=== PATIENT | female | born 1955 | race Caucasian/White ===

== ENCOUNTER 2017-02-04 11:29 | Day surgery (SDC) | payer OTHER ==
[2017-02-04] MEDS ORDERED: MIDAZOLAM 2 MG/2 ML VIAL IVP ONE (11:36)
[2017-02-04] MEDS ORDERED: fentaNYL 100 MCG/2 ML INJ IVP ONE (11:36)
[2017-02-04] MEDS ORDERED: BENZOCAINE UNIT DOSE SPRAY HURRICAINE MM ONE (11:36)
[2017-02-04] MEDS ORDERED: NS 500 ML IV ONE (11:36)
[2017-02-04] MEDS ORDERED: PROPOFOL 200 MG/20 ML VIAL IVP ONE (11:36)
--- NOTE | 2017-02-04 11:41 | CPEKG ---
Heart Rate: 80 RR Interval: 750 P-R Interval: 140 QRSD Interval: 74 QT Interval: 356 QTC Interval: 411 P [place]: 67 QRS [place]: 51 T Wave [place]: 33 EKG Severity - ABNORMAL ECG - EKG Impression: SINUS RHYTHM EKG Impression: CONSIDER ANTEROSEPTAL INFARCT Electronically Signed By: Kashmir Stephen 05-Feb-2017 13:02:53
== END 2017-02-04 12:00 | disposition home or self-care (01) ==
LOC: FCATH 11:29
PROVIDERS: ATTEND Internal Medicine Cardiovascular Disease
DX: Z53.29 Procedure and treatment not carried out because of patient's decision for other reasons (principal)

== ENCOUNTER → 2017-10-14 | Outpatient (CLI) | payer OTHER | LOC: BRMIMAGING 14:01 | PROVIDERS: ATTEND Family Medicine | DX: Z12.31 Encounter for screening mammogram for malignant neoplasm of breast (principal) | CPT/HCPCS: G0202 ==

== ENCOUNTER → 2018-04-21 | Outpatient (CLI) | payer OTHER | LOC: FIMAGING 12:20 | PROVIDERS: ATTEND Family Medicine | DX: M24.851 Other specific joint derangements of right hip, not elsewhere classified (principal); M24.852 Other specific joint derangements of left hip, not elsewhere classified ==

== ENCOUNTER 2018-06-21 15:08 | Day surgery (SDC) | payer MEDICAID, OTHER ==
[2018-06-21] MEDS ORDERED: BENZOCAINE UNIT DOSE SPRAY HURRICAINE MM ONE (15:11)
[2018-06-21] MEDS ORDERED: NS 500 ML IV ONE (15:11)
[2018-06-21] MEDS ORDERED: ATROPINE SULFATE 1 MG/10 ML SYR IVP ONE (15:11)
[2018-06-21] MEDS ORDERED: fentaNYL 100 MCG/2 ML INJ IVP ONE (15:11)
[2018-06-21] MEDS ORDERED: MIDAZOLAM 2 MG/2 ML VIAL IVP ONE (15:11)
--- NOTE | 2018-06-23 13:02 | CPEKG ---
Test Reason : OPEN Blood Pressure : / mmHG Vent. Rate : 080 BPM Atrial Rate : 079 BPM P-R Int : 144 ms QRS Dur : 084 ms QT Int : 383 ms P-R-T Axes : 070 060 -37 degrees QTc Int : 442 ms Sinus rhythm Anteroseptal infarct, old Minimal ST depression, anterolateral leads Unchanged in comparison to prior Confirmed by Kashmir Stephen ([id number]) on 06/23/2018 1:01:44 PM Referred By: Confirmed By:Kashmir Stephen
== END 2018-06-21 15:50 | disposition home or self-care (01) ==
LOC: FCATH 15:08
PROVIDERS: ATTEND Internal Medicine Cardiovascular Disease
DX: Z53.8 Procedure and treatment not carried out for other reasons (principal)

== ENCOUNTER → 2018-09-21 | Outpatient (CLI) | payer OTHER ==
[~2018-09-21] MED LIST: IOPAMIDOL (ISOVUE 370) 100 ML BTL IV ONE
== END ==
LOC: FIMAGING 11:49
PROVIDERS: ATTEND Internal Medicine Cardiovascular Disease
DX: Z13.6 Encounter for screening for cardiovascular disorders (principal); I48.91 Unspecified atrial fibrillation; I70.0 Atherosclerosis of aorta; I25.84 Coronary atherosclerosis due to calcified coronary lesion
CPT/HCPCS: Q9967

== ENCOUNTER 2018-09-27 11:09 | Observation (INO) | payer OTHER, MEDICARE ==
[2018-09-27] MEDS ORDERED: NS 1,000 ML IV ONE (11:14)
--- NOTE | 2018-09-27 11:41 | PDGENHP ---
History & Physical Chief Complaint: AFIB, symptomatic Relevant Physical Exam: s1s2, cta ao3 Cardiorespiratory Assessment: for CB PVI for symptomatic AFIB
[2018-09-27 11:49] LABS: PLATELET COUNT 185 10^3/uL (150-400)
[2018-09-27] MEDS ORDERED: HEPARIN/DEXTROSE 25,000 UNIT/500 ML BAG ONE (11:56)
[2018-09-27] MEDS ORDERED: HEPARIN 10,000 UNIT/10 ML MDV (1,000 UNIT/ML) ONE (11:56)
[2018-09-27] MEDS ORDERED: BUPIVACAINE 0.75% 10 ML SDV ONE (11:56)
[2018-09-27] MEDS ORDERED: LIDOCAINE 1% 300 MG/30 ML SDV ONE (11:56)
[2018-09-27 11:57] LABS: INR 0.95 (0.83-1.16); PROTIME(PATIENT) 12.9 SEC (12.0-15.0)
[2018-09-27] MEDS ORDERED: IOPAMIDOL (ISOVUE-300) 100 ML BTL ONE (11:57)
[2018-09-27] MEDS ORDERED: MIDAZOLAM 2 MG/2 ML VIAL IVP ONE (12:00)
--- NOTE | 2018-09-27 12:00 | POSTANESTH ---
Post Anesthetic Evaluation Cardiovascular Status: Normal, Stable Respiratory Status: Normal, Stable Level of Consciousness/Mental Status: Can Participate in Eval, Alert and Oriented Pain Control: Adequate, Prn Tx Ordered Nausea/Vomiting Control: Adequate, Prn Tx Ordered Complications Possibly Related to Anesthesia: None Noted
--- NOTE | 2018-09-27 12:00 | PDANEPAE ---
ANE History of Present Illness EP study/ a fib ablation ANE Past Medical History - Cardiovascular History Hx Hypertension: No Hx Arrhythmias: Yes Hx Chest Pain: No Hx Coronary Artery / Peripheral Vascular Disease: No Hx CHF / Valvular Disease: No Hx Palpitations: No Cardiovascular History Comment: 3 episodes of A Fib - Pulmonary History Hx COPD: No Hx Asthma/Reactive Airway Disease: No Hx Recent Upper Respiratory Infection: No Hx Oxygen in Use at Home: No Hx Sleep Apnea: No - Neurologic History Hx Cerebrovascular Accident: No Hx Seizures: No Hx Dementia: No - Endocrine History Hx Diabetes: No - Renal History Hx Renal Disorders: No - Liver History Hx Hepatic Disorders: No - Neurological & Psychiatric Hx Hx Neurological and Psychiatric Disorders: No - Cancer History Hx Cancer: No - Congenital Disorder History Hx Congenital Disorders: No - GI History Hx Gastrointestinal Disorders: No - Chronic Pain History Chronic Pain: Yes - Surgical History Prior Surgeries: appendectomy. cholecystectomy ANE Review of Systems Review of systems is: negative Review of Systems: - Exercise capacity Exercise capacity: >=4 METS ANE Patient History - Allergies Allergies/Adverse Reactions: codeine Allergy (Verified 08/03/14 12:03) - Home Medications Home Medications: Rosuvastatin Calcium [Crestor 40mg (*)] 40 mg PO DAILY 09/20/18 [Last Taken 12/13 20:00] Eliquis 5 mg PO BID 09/27/18 [Last Taken 09/24/18 20:00] Omeprazole 20 mg PO DAILY 09/27/18 [Last Taken Unknown] - Smoking Hx Smoking Status: Never smoked - Family Anes Hx Family Hx Anesthesia Complications: no ANE Labs/Vital Signs - Labs Result Diagrams: 09/27/18 11:30 09/27/18 11:30 - Vital Signs Height: 165 cm Weight: 65.8 kg ANE Physical Exam - Airway Neck exam: FROM Mallampati Score: Class 1 Mouth exam: normal dental/mouth exam - Pulmonary Pulmonary: no respiratory distress - Cardiovascular Cardiovascular: regular rate and rhythym - ASA Status ASA Status: II ANE Anesthesia Plan Anesthesia Plan: general endotracheal anesthesia
[2018-09-27] MEDS ORDERED: PROPOFOL 200 MG/20 ML VIAL ONE ×2 (12:02→12:56)
[2018-09-27] MEDS ORDERED: fentaNYL 100 MCG/2 ML INJ ONE ×2 (12:02→13:27)
[2018-09-27] MEDS ORDERED: MIDAZOLAM 2 MG/2 ML VIAL ONE (12:02)
[2018-09-27] MEDS ORDERED: ONDANSETRON 4 MG/2 ML VIAL ONE (12:56)
[2018-09-27] MEDS ORDERED: DEXAMETHASONE 4 MG/ML VIAL ONE (12:56)
[2018-09-27] MEDS ORDERED: ROCURONIUM 50 MG/5 ML VIAL ONE (12:56)
[2018-09-27] MEDS ORDERED: PROTAMINE SULFATE 50 MG/5 ML VIAL IVP ONE (13:55)
[2018-09-27] MEDS ORDERED: SUGAMMADEX SODIUM 200 MG/2 ML VIAL IVP ONE (14:02)
--- NOTE | 2018-09-27 14:11 | EPPROC ---
Electrophysiology Procedure Note: ELECTROPHYSIOLOGIC STUDY AND BALLOON-CATHETER MEDIATED CRYOABLATION FOR PAROXYSMAL ATRIAL FIBRILLATION Procedures performed: 00727-27 EP evaluation with RA/RV/LA pace/record, with arrhythmia induction 71267-52 EP evaluation with RA/RV pace record, insert/reposition catheter, with arrhythmia induction [id number] Atrial fibrillation ablation Intracardiac echocardiogram Transseptal puncture Fluoroscopy INDICATION: Paroxysmal atrial fibrillation PROCEDURE: The patient arrived in the Electrophysiology Laboratory in the fasting state. The right groin, left groin and right infraclavicular area were prepped and draped in the usual sterile fashion. Anesthesiologist administered general anesthesia Dr. Maurisio Romero . All catheters were placed percutaneously using the Seldinger technique and advanced into position under fluoroscopic guidance. One #7 [place]uvian deflectable octapolar electrode catheter was placed in the His-bundle position via the left femoral vein (2mm spacing, IVC electrode for unipolar recordings). This catheter was placed in the coronary sinus after transseptal puncture and later placed in the SVC-R subclavian vein junction to pace the right phrenic nerve during right pulmonary vein ablation. One #8 [place]uv[place] AcuNaV ultrasound catheter was placed in the left femoral vein and advanced into the right atrium. One #4 [place] sheath was inserted into the left femoral artery via percutaneous technique and used for continuous arterial blood pressure monitoring and intermittent ACT determination. Programmed stimulation was performed from the right atrium, left atrium (CS) and right ventricle. Intracardiac echo evaluation of the left atrium and pulmonary veins was performed. Baseline ACT was drawn and heparin bolus was administered and heparin drip was started prior to transseptal puncture. ACT was checked every 15 minutes and maintained in the range of 350-400 seconds. One 14Fr short sheath was placed in the right femoral vein. One 8Fr SL1 sheath was advanced into the right atrium via the 14Fr short sheath. Transseptal puncture was performed under intracardiac ultrasound, fluoroscopic and hemodynamic guidance placing the sheath into the left atrium. [place] RF needle ( C0 curve) was used, RF did not need to be applied. The mean left atrial pressure was 10 mmHg. Pulmonary vein angiogram was done using SL1 sheath. CT angiography of pulmonary veins was done previously. There were distinct LSPV, LIPV, RSPV and RIPV. The SL1 sheath was exchanged for a [employer] Internationaltronic Flexcath sheath using an Amplatz stiff guide wire. A 28 mm Cryoballoon catheter with a 20 mm Achieve catheter was placed via the sheath into the left atrium. Intracardiac ultrasound and PV angiograms were used to assist in placing the mapping catheter at the antrum of the pulmonary veins. All pulmonary veins were isolated successfully using cryoballoon ablation with good [id number] of isolation. Coumadin ridge/Ligament of [place] region was ablated. Pre and post pulmonary vein recordings were measured on the spiral Achieve catheter to ensure complete pulmonary vein isolation. During the right- sided ablation, phrenic nerve pacing was performed to assess the phrenic nerve strength (manually and with ICE visualization of liver movement during phrenic capture) and the phrenic nerve was intact throughout the right-sided ablation and at the end of the procedure. An esophageal temperature probe (12 electrode, Circa) was placed by the anesthesiologist at the beginning of the procedure. Esophageal temperature was monitored continuously and cryoablation was interrupted if esophageal temperature was <15 C. Cryoapplications 5 total cryoablation time 875 s. ICE imaging post ablation was consistent with pre ablation imaging with no changes noted, moreover there was no left atrial/left ventricular thrombus and no pericardial effusion. The catheters were withdrawn. Protamine was given. Venous vascular access sheaths were removed in the EP lab after placing subcutaneous pursestring suture. Arterial sheath was left in place. The patient was recovered from anesthesia. There were no complications. The patient was arousable and moving all four extremities at the end of the procedure. CONCLUSIONS: 1. Paroxysmal atrial fibrillation. 2. Successful pulmonary vein isolation procedure (left and right pulmonary vein antrum) using cryoballoon ablation. 3. No apparent complications. Patient Problems: Problems Problem Status Onset Atrial fibrillation Acute
--- NOTE | 2018-09-27 16:41 | CPEKG ---
Test Reason : OPEN Blood Pressure : / mmHG Vent. Rate : 070 BPM Atrial Rate : 070 BPM P-R Int : 146 ms QRS Dur : 083 ms QT Int : 379 ms P-R-T Axes : 051 039 002 degrees QTc Int : 409 ms Sinus rhythm Low voltage, precordial leads Confirmed by Alfred Croft ([id number]) on 09/27/2018 4:41:45 PM Referred By: Confirmed By:Alfred Croft
--- NOTE | 2018-09-27 16:44 | CPEKG ---
Test Reason : OPEN Blood Pressure : / mmHG Vent. Rate : 074 BPM Atrial Rate : 075 BPM P-R Int : 126 ms QRS Dur : 090 ms QT Int : 387 ms P-R-T Axes : 004 071 052 degrees QTc Int : 430 ms Sinus rhythm Low voltage, extremity leads Anteroseptal infarct, old Confirmed by Alfred Croft ([id number]) on 09/27/2018 4:44:15 PM Referred By: Confirmed By:Alfred Croft
[2018-09-27] MEDS ORDERED: traMADol 50 MG TAB PO PRN (17:28)
[2018-09-27] MEDS ORDERED: ACETAMINOPHEN 500 MG TAB PO ONE (20:00)
[2018-09-27] MEDS ORDERED: ONDANSETRON DISINTEGRATING 4 MG TAB PO ONE (20:00)
[2018-09-27] MEDS: APIXABAN 5 MG TAB PO SCH (21:05)
[2018-09-28 06:26] LABS: PLATELET COUNT 183 10^3/uL (150-400)
[2018-09-28] MEDS: APIXABAN 5 MG TAB PO SCH (08:37)
[2018-09-28] MEDS ORDERED: ROSUVASTATIN CALCIUM 40 MG TAB PO SCH (09:00)
[2018-09-28] MEDS ORDERED: PANTOPRAZOLE SODIUM 40 MG TAB PO SCH (09:00)
--- NOTE | 2018-09-28 11:10 | ASMTCMCOM ---
CM Note CM Note Notes: CM met with pt to discuss discharge plan. Pt is being discharged home independently. Pts was present. Both report they are Independent and have no CM needs. Date Signed: 09/28/2018 11:09 AM Electronically Signed By:WELLINGTON Powell
[2018-09-28 12:08] VITALS: BP 110/81
--- NOTE | 2018-09-28 12:08 | CPEKG ---
Test Reason : OPEN Blood Pressure : / mmHG Vent. Rate : 080 BPM Atrial Rate : 080 BPM P-R Int : 135 ms QRS Dur : 089 ms QT Int : 371 ms P-R-T Axes : 013 068 030 degrees QTc Int : 428 ms Sinus rhythm Low voltage, precordial leads Anteroseptal infarct, old Confirmed by Alfred Croft ([id number]) on 09/28/2018 12:07:59 PM Referred By: Confirmed By:Alfred Croft
--- NOTE | 2018-09-28 12:31 | ECHO ---
[email or web address] [address] [address] Main: [phone] Fax: Transthoracic Echocardiogram Name: LEVON HERRON MR#: [id number] Study Date: 09/28/2018 Study Time: 08:01 AM Date of : 1955 Age: 62 year(s) Height: 165.1 cm (65 in.) Weight: 65.77 kg (145 lb.) BSA: 1.73 m2 Gender: Female Examination: Echo Indication: F/U post EP study Image Quality: Adequate Contrast: Requested by: Felipe Olson BP: 94 mmHg/67 mmHg Heart Rate: Rhythm: Indication: F/U post EP study Procedure Staff Ice Rink Attendant: Madyson Kahn [facility] Reading Physician: Kashmir Stephen MD Requesting Provider: Conclusions: Normal size left ventricle. No LV hypertrophy. Normal global systolic LV function. EF is 67 %. No regional wall motion abnormality. Normal diastolic LV function. Normal size right ventricle. The left atrium is normal in size. Left to right shunt across the interatrial septum consistent with transseptal puncture. The right atrium is normal in size. There is mild thickening of the mitral valve leaflets. Trivial to mild mitral regurgitation. The aortic valve is tri-leaflet and functions normally. The tricuspid valve is normal in appearance and function. Mild to moderate tricuspid valve regurgitation. The pulmonic valve is normal in appearance and function. Normal size ascending aorta measuring 2.8 cm. Normal size and course of the IVC. Trivial pericardial effusion. Measurements: Chambers Valvular Assessment AV/MV Valvular Assessment TV/PV Normal Normal Normal Name Value Range Name Value Range Name Value Range Ao Ellen (MM): 2.6 cm (2.2 cm-3.7 AV Vmax: 1.38 m/s (1 m/s-1.7 TR Vmax: 3.29 mm/s ( - ) cm) m/s) TR PGmax: 43 mmHg ( - ) IVSd (2D): 0.9 cm (0.6 cm-1.1 AV maxP mmHg ( - ) syst. PAP: 48 mmHg ( - ) cm) LVOT Vmax: 1.02 m/s (0.7 m/s-1.1 PV Vmax: 0.74 m/s (0.6 m/s-0.9 LVDd (2D): 4.3 cm (3.9 cm-5.3 m/s) m/s) cm) ALAN (Vmax): 1.9 cm2 ( - ) Patient: LEVON HERRON Study Date: 09/28/2018 Page 1 of 2 08:01 AM LVDs (2D): 2.5 cm (2.1 cm-4 MV E Vmax: 0.91 m/s ( - ) PV PGmax: 2 mmHg ( - ) cm) MV A Vmax: 0.51 m/s ( - ) LVPWd (2D): 0.8 cm ( - ) MV E/A: 1.78 ( - ) LVOTd 1.8 cm 1.8 cm mm LVEF (BP): 67 % (>=55 %) RVDd(2D): 3.2 cm (1.9 cm-3.8 cmmm) Continued Measurements: Chambers Valvular Assessment AV/MV Valvular Assessment TV/PV Name Value Name Value Name Value LADs: 3.6 cm MV DecTime: 190 m/s CVP (est.): 5 mmHg LADs Lon.4 cm MV E' Septal: 0.08 m/s LA Area: 14.6 cm2 MV E/E' Septal: 11.00 LA Volume: 38 ml MV E/E' Lateral: 9.60 LA Volume Index: 22.0 ml/m2 TAPSE: 2.1 cm RA Area: 13.5 cm2 Additional Vessels Name Value Ao Ascendin.8 cm Findings: Left Ventricle: Normal size left ventricle. No LV hypertrophy. Normal global systolic LV function. EF is 67 %. No regional wall motion abnormality. Normal diastolic LV function. Right Ventricle: Normal size right ventricle. Normal RV function. Left Atrium: The left atrium is normal in size. Left to right shunt across the interatrial septum consistent with transseptal puncture. Right Atrium: The right atrium is normal in size. Mitral Valve: There is mild thickening of the mitral valve leaflets. Trivial to mild mitral regurgitation. No mitral stenosis is present. Aortic Valve: The aortic valve is tri-leaflet and functions normally. There is no aortic valve regurgitation. No aortic valve stenosis is present. Tricuspid Valve: The tricuspid valve is normal in appearance and function. Mild to moderate tricuspid valve regurgitation. Right ventricular systolic pressure measures 48mmHg. The pulmonary artery pressure is moderately increased. Pulmonic Valve: The pulmonic valve is normal in appearance and function. There is no pulmonic regurgitation seen. Aorta: Normal size aortic root measuring 2.6 cm. Normal size ascending aorta measuring 2.8 cm. IVC: No foreign body in inferior vena cava. Normal size and course of the IVC. Pericardium: Trivial pericardial effusion. (No Signature Object) Patient: LEVON HERRON Study Date: 09/28/2018 Page 2 of 2 08:01 AM [id number]
--- NOTE | 2018-09-28 13:34 | ASDISCHSUM ---
Discharge Information Plan Status:Home with No Needs Medically Cleared to Leave: Discharge Date:09/28/2018 12:19 PM CM D/C Disposition:Home, Routine, Self-Care ADT D/C Disposition:Home, Routine, Self-Care Projected Discharge Date:09/28/2018 12:19 PM Transportation at D/C:Family Discharge Delay Reason: Follow-Up Date:09/28/2018 12:19 PM Discharge Slot: Final Diagnosis:A Fib Ablation Placement Information Patient Contact Information Contact Name:FROILAN Relationship: Address:[address] [facility] City:[place] Phone: State/Zip Code:[place] [address] Email: Financial Information Financial Class:Medicare Primary Plan Desc:MEDICARE OUTPATIENT Primary Plan Number:[id number] Secondary Plan Desc:[employer]ARP/MDR SUPPLEMENT Secondary Plan Number:[id number] Assessment Information LACE LACE Length of stay for Answers: 1 day current admission Comorbidities - select Answers: Coronary Artery Disease all that apply Opioid dependence / Chronic pain Other Notes: AFib # of Emergency department Answers: 0 visits in the last 6 months Score: 8 Date Signed: 09/28/2018 01:33 PM Electronically Signed By:WELLINGTON Powell [facility] CM Progress Note CM Note CM Note Notes: CM met with pt to discuss discharge plan. Pt is being discharged home independently. Pts was present. Both report they are Independent and have no CM needs. Date Signed: 09/28/2018 11:09 AM Electronically Signed By:WELLINGTON Powell Case Management Discharge Plan Note Case Management Discharge Discharge Order Complete? Answers: Yes Patient to Obtain Answers: via Family Medications Transportation Arranged Answers: Family/Friends Family Notified Answers: Yes Notes: at bedside Discharge Comments Notes: No CM needs identified. Pt discharged home with family supports. Date Signed: 09/28/2018 11:11 AM Electronically Signed By:WELLINGTON Powell Intervention Information
--- NOTE | 2018-09-28 21:53 | GDS ---
SUPERVISING HUMAN RESOURCES ADMIN: Felipe Olson MD ADMISSION DIAGNOSIS: Paroxysmal atrial fibrillation. DISCHARGE DIAGNOSES: Paroxysmal atrial fibrillation, status post cryoballoon pulmonary vein isolation. PROCEDURES PERFORMED DURING HOSPITALIZATION: 1. Electrocardiogram. 2. Electrophysiology study. 3. Cryoballoon pulmonary vein isolation. 4. Echocardiogram. HOSPITAL COURSE: Patient presented 09/27/2018, for atrial fibrillation ablation in the setting of increasingly symptomatic episodes of paroxysmal atrial fibrillation. She underwent successful pulmonary vein isolation yesterday with Dr. Olson. She has done very well in the postoperative period without any noted complications. Her telemetry overnight demonstrated normal sinus rhythm without recurrence of atrial arrhythmia. She has been up walking around this morning without chest pain, chest pressure, or symptoms suggestive of ischemia. She has been eating well with good appetite this morning. No issues with swallowing, hemoptysis, or other concerning symptoms. CURRENT PHYSICAL EXAMINATION: GENERAL APPEARANCE: No apparent distress. She is alert and oriented x4. CURRENT VITAL SIGNS: Blood pressure 110/81, heart rate 81, SpO2 94% on room air. HEENT: Head is normocephalic. Lips and tongue are pink and moist with no signs of cyanosis. Conjunctivae are pink. NECK: Trachea is midline. 2+ carotid pulses bilaterally. No auscultated bruits. No jugular venous distention. RESPIRATORY: Lungs are clear to auscultation. No rhonchi, rales, or wheezes. No accessory muscle use. No intercostal muscle retraction noted. CARDIAC: Regular rate and rhythm, S1, S2. No S3, S4, gallops, rubs, or murmurs noted. ABDOMEN: Soft, nontender. Bowel sounds normoactive x4. No palpable masses. SKIN: [place], warm, and dry without cyanosis. No peripheral edema. EXTREMITIES: Bilateral purse-string sutures removed this morning without evidence of hematoma, redness, swelling, oozing, or warmth from access sites. Pulses 2+ bilaterally. No edema. LABORATORY STUDIES: Labs drawn today show white blood cell count 5.93, hemoglobin 12.1, hematocrit 36.2. Chemistry panel is normal. Troponin 8.26 this morning. PROCEDURES: ECG this morning demonstrates normal sinus rhythm without significant ST or T-wave abnormalities. Echocardiogram this morning is stable. DISCHARGE DISPOSITION: Patient will be discharged home in stable condition. She is under activity restrictions of lifting no more than 10 pounds for the next 10 days. She will get up and walk around every 45 minutes for 45 days. She will not engage in any submerged bathing during this same time frame. DISCHARGE MEDICATIONS: Please see discharge med reconciliation sheet. Patient has resumed her Eliquis and omeprazole in the postprocedure period. DISCHARGE INSTRUCTIONS: 1. Post atrial fibrillation ablation discharge instructions reviewed in detail with patient including groin precautions and activity restrictions. 2. She will contact our clinic if she experiences any new or concerning symptoms prior to her 1-month followup visit. 3. She will contact our clinic if she plans to scuba dive or travel via unpressurized aircraft for the next 12 months. 4. She will continue Omeprazole for 6 weeks 5. She will continue Eliquis for long-term anticoagulation /[id number]/MODL MTDD
== END 2018-09-28 12:19 | disposition home or self-care (01) ==
LOC: FCATH 11:09 → F2N 14:12
PROVIDERS: ADMIT Internal Medicine Cardiovascular Disease; ATTEND Internal Medicine Cardiovascular Disease
DX: I48.0 Paroxysmal atrial fibrillation (principal)
CPT/HCPCS: 93005; 93306; 93312; 93613; 93656; 93662; C1730; C1731; C1732; C1733; C1759; C1766; C1893; J1100; J1644; J2250; J2405; J2704; J2720; J3010; Q9967

== ENCOUNTER → 2018-10-01 | Outpatient (CLI) | payer OTHER | LOC: FIMAGING 15:23 | PROVIDERS: ATTEND Internal Medicine Cardiovascular Disease | DX: I48.91 Unspecified atrial fibrillation (principal); J90 Pleural effusion, not elsewhere classified ==

== ENCOUNTER 2018-10-02 14:18 | Observation (INO) | payer OTHER, MEDICARE ==
--- NOTE | 2018-10-02 14:50 | EDPHY ---
H & P Stated Complaint: Ablation on Thursday; thinks she's back in afib; feels lightheaded Time Seen by Provider: 10/02/18 14:37 HPI/ROS: CHIEF COMPLAINT: Atrial fibrillation HISTORY OF PRESENT ILLNESS: The patient is a 62-year-old female with a history of atrial fibrillation on Eliquis. On Thursday this week she had a cardiac ablation done with Dr. Olson. Her primary lead enterprise architect is Dr. Dos Santos. Yesterday she felt like her heart was beating fast and is followed up in Dr. Olson is office. He performed an echocardiogram and EKG. These were both unremarkable. He then started her on diltiazem. Today around 11:00 a.m. She noticed palpitations and lightheadedness. No nausea vomiting. No chest pain or shortness of breath. She called cardiology office and spoke with Dr. Stephen who recommended she take an extra dose of diltiazem. Her symptoms did not subside after 2 hr so she called back and they recommended she come here to the ER for cardioversion. She last ate at 10:00 a.m.. Severity: Moderate Modifying factors: None REVIEW OF SYSTEMS: Constitutional: denies: chills, fever, recent illness, recent injury EENTM: denies: blurred vision, double vision, nose congestion Respiratory: denies: cough, shortness of breath Cardiac: Palpitations, lightheadedness Gastrointestinal/Abdominal: denies: abdominal pain, diarrhea, nausea, vomiting, blood streaked stools Genitourinary: denies: dysuria, frequency, hematuria, pain Musculoskeletal: denies: joint pain, muscle pain Skin: denies: lesions, rash, jaundice, bruising Neurological: denies: headache, numbness, paresthesia, tingling, dizziness, weakness Hematologic/Lymphatic: denies: blood clots, easy bleeding, easy bruising Immunologic/allergic: denies: HIV/AIDS, transplant 10 systems reviewed and negative except as noted EXAM: GENERAL: Somewhat anxious, well-nourished and in no acute distress. HEAD: Atraumatic, normocephalic. EYES: Pupils equal round and reactive to light, extraocular movements intact, sclera anicteric, conjunctiva are normal. ENT: TMs normal, nares patent, oropharynx clear without exudates. Moist mucous membranes. NECK: Normal range of motion, supple without lymphadenopathy or JVD. LUNGS: Breath sounds clear to auscultation bilaterally and equal. No wheezes rales or rhonchi. HEART: Tachycardic, irregular ABDOMEN: Soft, nontender, normoactive bowel sounds. No guarding, no rebound. No masses appreciated. BACK: No CVA tenderness, no spinal tenderness, step-offs or deformities EXTREMITIES: Normal range of motion, no pitting or edema. No clubbing or cyanosis. NEUROLOGICAL: Cranial nerves II through XII grossly intact. Normal speech, normal gait. 5/5 strength, normal movement in all extremities, normal sensation , normal reflexes PSYCH: Normal mood, normal affect. SKIN: Warm, dry, normal turgor, no visible rashes or lesions. Source: Patient Exam Limitations: No limitations - Personal History Current Tetanus Diphtheria and Acellular Pertussis (TDAP): Yes Tetanus Vaccine Date: <10 YRS - Medical/Surgical History Hx Asthma: No Hx Chronic Respiratory Disease: No Hx Diabetes: No Hx Cardiac Disease: No Hx Renal Disease: No Hx Cirrhosis: No Hx Alcoholism: No Hx HIV/AIDS: No Hx Splenectomy or Spleen Trauma: No Other PMH: RICHARD, APPY, DJD bilateral hips, CAD, PAF,. MV prolapse. afib - Family History Significant Family History: No pertinent family hx - Social History Smoking Status: Never smoked Alcohol Use: None Drug Use: None Constitutional: Initial Vital Signs Temperature (C) 36.4 C 10/02/18 14:20 Heart Rate 166 H 10/02/18 14:20 Respiratory Rate 18 10/02/18 14:20 Blood Pressure 141/105 H 10/02/18 14:20 O2 Sat (%) 97 10/02/18 14:20 O2 Delivery Mode [Post Nasal Cannula Procedure 4th] O2 Delivery Mode [Post Nasal Cannula Procedure 3rd] O2 Delivery Mode [Post Non-Rebreather Mask Procedure 2nd] O2 Delivery Mode [Post Non-Rebreather Mask Procedure 1st] O2 Delivery Mode [Procedural Non-Rebreather Mask 1st] O2 Delivery Mode [.Immediate Nasal Cannula Pre-Procedure] O2 Delivery Mode Room Air O2 (L/minute) [Post Procedure 2 4th] O2 (L/minute) [Post Procedure 2 3rd] O2 (L/minute) [Post Procedure 15 2nd] O2 (L/minute) [Post Procedure 15 1st] O2 (L/minute) [Procedural 1st] 15 O2 (L/minute) [.Immediate Pre- 2 Procedure] O2 (L/minute) 2 Allergies/Adverse Reactions: codeine Allergy (Mild, Verified 10/02/18 14:29) n/v Home Medications: Medication Instructions Recorded Rosuvastatin Calcium [Crestor 40mg 40 mg PO DAILY@18 09/20/18 (*)] Herbals/Supplements -Info Only 1 ea PO DAILY 09/27/18 Omeprazole 20 mg PO DAILY 09/27/18 Apixaban [Eliquis] 5 mg PO BID 10/02/18 Aspirin EC [Aspirin EC 81 mg (*)] 81 mg PO DAILY@18 10/02/18 Cholecalciferol (Vitamin D3) 5,000 unit PO DAILY 10/02/18 [Vitamin D3] Diltiazem HCl [Diltiazem ER] 180 mg PO DAILY 10/02/18 Medical Decision Making - Diagnostics EKG Interpretation: An EKG obtained and was read and documented in trace view. Please see trace view for full reading and report. Atrial fibrillation, no acute ischemic changes Procedures: Procedure: Procedural sedation. Indication: Cardioversion. A pre-sedation evaluation was completed on the patient just prior to the procedure. Patient is an appropriate candidate for procedural sedation with a normal 3-3-2 rule assessment and a Mallampati airway score of class 2. The risks of the sedation were discussed including but not limited to dysrhythmia, need for airway intervention or general anesthesia, disability, ; and verbal consent obtained. A timeout was observed and patient's identity confirmed. The patient was sedated with propofol 60 mg. The patient was monitored with continuous pulse oximetry, capnography, and helper driver. There were no complications and no significant hypoxemia. I remained at the bedside for the sedation. The total time I spent in the procedural sedation was 16 minutes. Procedure: Electrical cardioversion. The patient was electrically cardioverted for atrial fibrillation. The patient was on a continuous teacher ballet, with airway equipment at the bedside. The patient was on continuous pulse oximetry. The cardioversion was attempted with 120 joules biphasic current. The cardioversion was successful. The patient tolerated the procedure well with no complications. The procedure was performed by myself. ED Course/Re-evaluation: Patient has documented sinus rhythm less than 24 hr ago. She is anticoagulated. We will plan to cardiovert. I offered procainamide verses electrical cardioversion. She told me that Dr. Dos Santos would prefer electrical cardioversion. She has already tried vagal maneuvers. 3:15 p.m. the patient was sedated with propofol cardioverted at 1:20 a.m. Joules. She went to sinus rhythm but is in and out of atrial fibrillation. We gave her 10 mg IV diltiazem. She had taken the extra dose earlier today as well. She remains about 30% atrial fibrillation 70% sinus rhythm. We will observe to see if she needs further medications cardioversion. 3:45 p.m. I spoke with Dr. Stephen. He agrees with the treatment thus far. Unfortunately the patient remains in atrial fibrillation a large portion of the time. She tends to go back and forth on the monitor. She feels much better however in her rate is around 100. Dr. Stephen recommends some anxiety lytic and then admission to the hospitalist service for further evaluation by the cardiology team tomorrow. 4:00 p.m. I spoke with Dr. Fuentes who will admit to the medical service. Differential Diagnosis: Partial list of the Differential diagnosis considered include but were not limited to; atrial fibrillation, anxiety, lightheadedness and although unlikely based on the history and physical exam, I also considered acute coronary disease, PE, infection. I discussed these differential diagnoses and the plan with the patient as well as the usual and expected course. The patient understands that the diagnosis is provisional and that in medicine we are not always correct and that further workup is often warranted. Usual and customary warnings were given. All of the patient's questions were answered. The patient was instructed to return to the emergency department should the symptoms at all worsen or return, otherwise to followup with the physician as we discussed. Critical Care Time: Critical care time spent by me, Dr. Monroe exclusive with this patient was 35 minutes, exclusive of the PA time exclusive of procedures. The organ system that was at risk was cardiologic and I gave medications, treatments, consultation and admission to prevent worsening of the patient's condition - Data Points Laboratory Results: Laboratory Results 10/02/18 14:40 10/02/18 14:40 10/02/18 10/02/18 14:40 14:40 WBC 6.00 10^3/uL 10^3/uL (3.80-9.50) RBC 4.87 10^6/uL 10^6/uL (4.18-5.33) Hgb 14.9 g/dL g/dL (12.6-16.3) Hct 44.3 % % (38.0-47.0) MCV 91.0 fL fL (81.5-99.8) MCH 30.6 pg pg (27.9-34.1) MCHC 33.6 g/dL g/dL (32.4-36.7) RDW 12.2 % % (11.5-15.2) Plt Count 234 10^3/uL 10^3/uL (150-400) MPV 9.0 fL fL (8.7-11.7) Neut % (Auto) 72.0 % % (39.3-74.2) Lymph % (Auto) 15.5 % % (15.0-45.0) Wilcox % (Auto) 10.5 % % (4.5-13.0) Eos % (Auto) 1.2 % % (0.6-7.6) Baso % (Auto) 0.5 % % (0.3-1.7) Nucleat RBC Rel Count 0.0 % % (0.0-0.2) Absolute Neuts (auto) 4.32 10^3/uL 10^3/uL (1.70-6.50) Absolute Lymphs (auto) 0.93 10^3/uL L 10^3/uL (1.00-3.00) Absolute Monos (auto) 0.63 10^3/uL 10^3/uL (0.30-0.80) Absolute Eos (auto) 0.07 10^3/uL 10^3/uL (0.03-0.40) Absolute Basos (auto) 0.03 10^3/uL 10^3/uL (0.02-0.10) Absolute Nucleated RBC 0.00 10^3/uL 10^3/uL (0-0.01) Immature Gran % 0.3 % % (0.0-1.1) Immature Gran # 0.02 10^3/uL 10^3/uL (0.00-0.10) Sodium 141 mEq/L mEq/L (135-145) Potassium 3.9 mEq/L mEq/L (3.5-5.2) Chloride 105 mEq/L mEq/L (97-110) Carbon Dioxide 27 mEq/l mEq/l (22-31) Anion Gap 9 mEq/L mEq/L (6-14) BUN 14 mg/dL mg/dL (7-23) Creatinine 0.8 mg/dL mg/dL (0.6-1.0) Estimated GFR > 60 Glucose 139 mg/dL H mg/dL (70-100) Calcium 9.9 mg/dL mg/dL (8.5-10.4) Medications Given: Discontinued Medications Diltiazem HCl (Cardizem 25 Mg/5 Ml Vial) 10 mg IVP EDNOW ONE Stop: 10/02/18 15:10 Last Admin: 10/02/18 15:10 Dose: 10 mg Diltiazem HCl 125 mg/ Dextrose 125 mls @ 0 mls/hr IV EDNOW ONE; As Directed PRN Reason: Protocol Stop: 10/02/18 16:01 Last Admin: 10/02/18 16:25 Dose: 125 mls Lorazepam (Ativan Injection) 1 mg IVP EDNOW ONE Stop: 10/02/18 15:47 Last Admin: 10/02/18 16:03 Dose: 1 mg Propofol (Diprivan) 60 mg IVP EDNOW ONE Stop: 10/02/18 15:10 Last Admin: 10/02/18 15:11 Dose: 60 mg Departure - Departure Disposition: [facility] Inpatient Acute Clinical Impression: Atrial fibrillation Qualifiers: Atrial fibrillation type: chronic Qualified Code(s): I48.2 - Chronic atrial fibrillation Condition: Fair
--- NOTE | 2018-10-02 14:51 | CPEKG ---
Test Reason : OPEN Blood Pressure : / mmHG Vent. Rate : 125 BPM Atrial Rate : 106 BPM P-R Int : 149 ms QRS Dur : 084 ms QT Int : 297 ms P-R-T Axes : 067 073 036 degrees QTc Int : 429 ms Atrial fibrillation Paired ventricular premature complexes Anteroseptal infarct, old Confirmed by Malik Monroe ([id number]) on 10/02/2018 2:50:38 PM Referred By: Confirmed By:Malik Monroe
[2018-10-02 14:52] LABS: PLATELET COUNT 234 10^3/uL (150-400)
[2018-10-02] MEDS ORDERED: PROPOFOL 200 MG/20 ML VIAL ONE (14:53)
[2018-10-02] MEDS ORDERED: DILTIAZEM 25 MG/5 ML VIAL IVP ONE ×2 (15:06→15:09)
[2018-10-02] MEDS ORDERED: PROPOFOL 200 MG/20 ML VIAL IVP ONE (15:09)
[2018-10-02] MEDS ORDERED: LORazepam 2 MG/ML INJ IVP ONE (15:46)
[2018-10-02] MEDS ORDERED: DILTIAZEM 125 MG in D5W 125 ML IV ONE (16:00)
[2018-10-02] MEDS ORDERED: ONDANSETRON DISINTEGRATING 4 MG TAB PO PRN (18:35)
[2018-10-02] MEDS ORDERED: ACETAMINOPHEN 325 MG TAB PO PRN (18:35)
[2018-10-02] MEDS ORDERED: TEMAZEPAM 15 MG CAP PO PRN (18:35)
[2018-10-02] MEDS ORDERED: ONDANSETRON 4 MG/2 ML VIAL IVP PRN (18:35)
--- NOTE | 2018-10-02 19:55 | GHP ---
DATE OF ADMISSION: 10/02/2018 CHIEF COMPLAINT: Atrial fibrillation. HISTORY OF PRESENT ILLNESS: This is a 62-year-old female who has had atrial fibrillation for several years. She underwent an ablation last week with Dr. Olson. She had been doing well until this mornin g when she realized she was in atrial fibrillation. She had some dizziness but no chest pain. In e emergency department, cardioversion was attempted, which was successful for some time, but she has reverted back to atrial fibrillation. She is denying any chest pain, shortness of breath. REVIEW OF SYSTEMS: A 10-point review of systems was obtained and was otherwise negative. PAST MEDICAL HISTORY: 1. Atrial fibrillation. 2. GERD. 3. Hyperlipidemia. MEDICATIONS: Reviewed. SOCIAL HISTORY: No smoking or alcohol. FAMILY HISTORY: No family history of atrial fibrillation. PHYSICAL EXAMINATION: VITAL SIGNS: Afebrile, blood pressure 123/73, heart rate 122, oxygen saturati on 93% on room air. GENERAL: The patient is well developed, in no apparent distress. HEENT: Nonic teric sclerae. Extraocular movements intact. Moist mucous membranes. NECK: Supple. No thyromegal y. LUNGS: Good effort. Clear to auscultation bilaterally. CARDIOVASCULAR: Tachycardic. Irregula rly irregular. No murmurs, rubs, or gallops. ABDOMEN: Positive bowel sounds. Soft, nontender, non distended. No hepatosplenomegaly. EXTREMITIES: No clubbing, cyanosis, or edema. SKIN: Without ra sh. Dry, intact. NEUROLOGIC: Moving all 4 extremities equally. PSYCH: Normal affect. LABS: CBC is normal. Chemistries normal. EKG shows atrial fibrillation. ASSESSMENT: This is a 62-year-old female with recurrent atrial fibrillation after ablation. PLAN: Patient will be admitted. She will continue a diltiazem drip that was started by the emergenc y department. Cardiology has been consulted and will offer recommendations in the morning. /[id number]/MODL
[2018-10-02] MEDS ORDERED: ASPIRIN EC 81 MG TAB PO ONE (21:00)
[2018-10-02] MEDS ORDERED: ROSUVASTATIN CALCIUM 40 MG TAB ONE (21:00)
[2018-10-02] MEDS: APIXABAN 5 MG TAB PO SCH (21:01)
[2018-10-03 07:44] VITALS: BP 125/76
[2018-10-03] MEDS: APIXABAN 5 MG TAB PO SCH (07:50)
[2018-10-03] MEDS ORDERED: DILTIAZEM CD 180 MG CAP PO SCH (09:00)
[2018-10-03] MEDS ORDERED: PANTOPRAZOLE SODIUM 40 MG TAB PO SCH (09:00)
--- NOTE | 2018-10-03 09:25 | PDCARPN ---
Cardiology Progress Note Chief Complaint: Patient doing well this morning. Sinus rhythm noted Assessment/Plan: Assessment: Patient is a 62 y/o female, well known to [facility] EP (Dr. Pily Olson) status post ablation last week for atrial fibrillation. Yesterday morning, the patient noted a "...fast, irregular heart rate..." while vacuuming. Call to cardiology with initial recommendations over the phone for the patient to increase her dose of diltiazem, and see how heart rates responded. After about two hours, the heart rate was still elevated, and the patient was having more issues with dizziness, so recommendations were for patient to go to ER. Call to ER to recommend against cardioversion (off anticoagulation briefly and fresh ablation), with more therapy directed toward slowing rate as well as reducing anxiety. Patient was cardioverted, unsuccessfully, but did spontaneously convert on the floor last night. At present, the patient is feeling well, and would like to go home. No cardiovascular complaints of chest pains or pressure. Patient feels that her heart rate is back to her baseline. Plan: (1) Would maintain therapy on Eliquis for CVA prophylaxis (2) Would determine the patient's IV dosing of CCB yesterday (from ER to floor ) to determine home dosage of CCB therapy - she was initially on 180 mg of diltiazem (3) Patient should continue therapy on statins for HLP (4) Call to [facility] EP in morning for follow up scheduling Subjective: No cardiovascular complaints Reviewed/Discussed With: hospitalist Objective: Vital Signs (8 Hrs) Temp Pulse Resp BP Pulse Ox 10/03/18 07:50 88 125/76 H 10/03/18 07:42 37.1 C 93 18 125/76 H 95 10/03/18 04:00 36.7 C 81 16 105/53 L 90 L Intake/Output (24 Hrs) 10/02/18 10/03/18 10/04/18 05:59 05:59 05:59 Intake Total 1200 Balance 1200 Intake: Oral (ml) 200 IV Infused (ml) 1000 Other: Weight 66.5 kg Intake Quantity Yes Sufficient Number of Voids Toilet 2 Result Diagrams: 10/02/18 14:40 10/02/18 14:40 Telemetry: normal sinus rhythm - Physical Exam Constitutional: WDWN, healthy appearing, no apparent distress Eyes: PERRL, EOMI Ears, Nose, Mouth, Throat: moist mucous membranes Cardiovascular: regular rate and rhythm, no murmurs, no rubs Peripheral Pulses: 2+: dorsalis-pedis (R), dorsalis-pedis (L) Respiratory: clear to auscultate bilat, no crackles, no wheezes Gastrointestinal: normoactive bowel sounds Skin: no rashes, no edema Musculoskeletal: no muscular tenderness Neurologic: AAOx3, CN II-XII grossly intact Psychiatric: cooperative, interactive, following commands ICD10 Worksheet Patient Problems: Problems Problem Status Onset Atrial fibrillation Acute
--- NOTE | 2018-10-03 10:07 | ASDISCHSUM ---
Discharge Information Plan Status:Home with No Needs Medically Cleared to Leave:10/02/2018 Discharge Date:10/02/2018 CM D/C Disposition:Home, Routine, Self-Care ADT D/C Disposition:Home, Routine, Self-Care Projected Discharge Date:10/02/2018 Transportation at D/C: Discharge Delay Reason: Follow-Up Date:10/02/2018 Discharge Slot: Final Diagnosis: Placement Information Patient Contact Information Contact Name:FROILAN Relationship: Address:[address] [place] [address] City:[place] Phone: [facility]/Zip Code:[place] [address] Email: Financial Information Financial Class:Medicare Primary Plan Desc:MEDICARE OUTPATIENT Primary Plan Number:[id number] Secondary Plan Desc:[employer]/MDR SUPPLEMENT Secondary Plan Number:[id number] Assessment Information Intervention Information
--- NOTE | 2018-10-03 10:08 | ASMTLACE ---
LACE Length of stay for Answers: Less than 1 day current admission Acuity / Level of Answers: No Care: Did the patient have an inpatient admission? Comorbidities - select Answers: Other Notes: atrial fib all that apply # of Emergency department Answers: 1-2 visits in the last 6 months Score: 2 Date Signed: 10/03/2018 10:08 AM Electronically Signed By:Gricelda Ruiz RN
--- NOTE | 2018-10-03 10:10 | ASMTDCNOTE ---
Case Management Discharge Discharge Order Complete? Answers: Yes Patient to Obtain Answers: Independently Medications Transportation Arranged Answers: Family/Friends Family Notified Answers: Yes Discharge Comments Notes: Patient s/p succesful Cardio version. Medically cleared for discharge to home. No needs. Date Signed: 10/03/2018 10:09 AM Electronically Signed By:Gricelda Ruiz RN
--- NOTE | 2018-10-03 10:33 | GDS ---
ALL DIAGNOSES: 1. Atrial fibrillation with rapid ventricular response. 2. Recent ablation by Dr. Olson. HOSPITAL COURSE: This is a 62-year-old female who presented to the ED in atrial fibrillation with RV R. She underwent a cardioversion there, however, reverted to atrial fibrillation. She was thus admi tted on a diltiazem drip. She converted to sinus rhythm overnight. She has been seen by Cardiology, who agrees with a slight increase in her diltiazem from 180 mg daily to 240 mg daily. When I am see ing her, she is not interested in having any discussion regarding her medical care and only said "bye ." She is thus discharged in stable condition. She will follow up with Dr. Olson as planned. /[id number]/MODL
[2018-10-03] MEDS ORDERED: ROSUVASTATIN CALCIUM 40 MG TAB PO SCH (18:00)
[2018-10-03] MEDS ORDERED: ASPIRIN EC 81 MG TAB PO SCH (18:00)
== END 2018-10-03 10:20 | disposition home or self-care (01) ==
LOC: F2W 17:00
PROVIDERS: ADMIT Internal Medicine; ATTEND Student in an Organized Health Care Education/Training Program
PROC: 5A2204Z Restoration of Cardiac Rhythm, Single (ICD-10-PCS; principal; 2018-10-02)
DX: I48.2 Chronic atrial fibrillation (principal); Z79.01 Long term (current) use of anticoagulants; I25.10 Atherosclerotic heart disease of native coronary artery without angina pectoris; M16.0 Bilateral primary osteoarthritis of hip
CPT/HCPCS: 92960; 93005; 96374; 96375; 99291; G0378; J2060; J2704

== ENCOUNTER → 2018-10-08 | Outpatient (CLI) | payer OTHER, MEDICARE | LOC: BHFA 13:00 | PROVIDERS: ATTEND Internal Medicine Cardiovascular Disease | DX: I48.91 Unspecified atrial fibrillation (principal) ==

== ENCOUNTER → 2018-11-02 | Outpatient (CLI) | payer OTHER, MEDICARE | LOC: BRMIMAGING 11:04 | PROVIDERS: ATTEND Family Medicine | DX: Z12.31 Encounter for screening mammogram for malignant neoplasm of breast (principal) ==

== ENCOUNTER → 2019-01-05 | Outpatient (CLI) | payer OTHER, MEDICARE | LOC: EMCIMAGING 07:48 | PROVIDERS: ATTEND Family Medicine | DX: N95.8 Other specified menopausal and perimenopausal disorders (principal); D25.1 Intramural leiomyoma of uterus | CPT/HCPCS: 76700-PN; 76856-PN ==

== ENCOUNTER → 2019-01-11 | Outpatient (CLI) | payer OTHER, MEDICARE | LOC: BHFA 13:00 | PROVIDERS: ATTEND Internal Medicine Cardiovascular Disease | DX: Z01.818 Encounter for other preprocedural examination (principal); I48.0 Paroxysmal atrial fibrillation; I25.10 Atherosclerotic heart disease of native coronary artery without angina pectoris | CPT/HCPCS: 78452; 93017; A9500; J2785 ==

== ENCOUNTER 2019-02-02 05:55 | Inpatient (IN) | payer OTHER, MEDICARE ==
[2019-02-02] MEDS ORDERED: TRANEXAMIC ACID 3,000 MG in NS (SYRINGE) 50 ML IRR ONE (06:00)
[2019-02-02] MEDS ORDERED: ROPIVACAINE 0.2% 80 MG, EPINEPHrine 0.2 MG, KETOROLAC TROMETHAMINE 30 MG in SYRINGE 0 ML IU ONE (06:00)
[2019-02-02] MEDS ORDERED: DEXAMETHASONE 4 MG/ML VIAL IVP ONE (06:03)
[2019-02-02] MEDS ORDERED: ACETAMINOPHEN 325 MG TAB PO ONE (06:03)
[2019-02-02] MEDS ORDERED: FAMOTIDINE 20 MG TAB PO ONE (06:03)
[2019-02-02] MEDS ORDERED: ceFAZolin 2 GM/DEXTROSE 100 ML IV ONE (06:03)
[2019-02-02] MEDS ORDERED: LR 1,000 ML IV ONE (06:04)
[2019-02-02] MEDS ORDERED: ACETAMINOPHEN 325 MG TAB ONE (06:13)
[2019-02-02] MEDS ORDERED: FAMOTIDINE 20 MG TAB ONE (06:13)
[2019-02-02] MEDS ORDERED: DEXAMETHASONE 4 MG/ML VIAL ONE ×3 (06:13→07:48)
--- NOTE | 2019-02-02 06:13 | PDHPUP ---
History & Physical Update H&P update statement: This history and physical update is based on an assessment of the patient which was completed after admission or registration (within 24 hours), but prior to the surgery/procedure. H&P update: H&P reviewed & patient examined, no change in patient's condition since H&P completed
[2019-02-02] MEDS ORDERED: CEFAZOLIN 2 GM/DEXTROSE/100 ML BAG IV ONE (06:14)
[2019-02-02] MEDS ORDERED: TRANEXAMIC ACID 3,000 MG/50 ML BAG IRR ONE (07:03)
[2019-02-02] MEDS ORDERED: MIDAZOLAM 2 MG/2 ML VIAL IVP ONE (07:32)
[2019-02-02] MEDS ORDERED: ONDANSETRON 4 MG/2 ML VIAL IVP PRN ×2 (07:36→09:14)
[2019-02-02] MEDS ORDERED: HYDROCODONE/APAP 5/325 TAB PO PRN (07:36)
[2019-02-02] MEDS ORDERED: DIAZEPAM 5 MG/ML 1 ML SYR IVP PRN (07:36)
[2019-02-02] MEDS ORDERED: LR 500 ML IV PRN (07:36)
[2019-02-02] MEDS ORDERED: PROMETHAZINE HCL 25 MG/ML INJ IVP PRN ×2 (07:36→09:14)
[2019-02-02] MEDS ORDERED: ACETAMINOPHEN 500 MG TAB PO PRN (07:36)
[2019-02-02] MEDS ORDERED: NALOXONE HCL 0.4 MG/ML INJ IVP PRN (07:36)
[2019-02-02] MEDS ORDERED: fentaNYL 100 MCG/2 ML INJ IVP PRN (07:36)
--- NOTE | 2019-02-02 07:36 | PDANEPAE ---
ANE Past Medical History - Cardiovascular History Hx Hypertension: No Hx Arrhythmias: Yes Hx Chest Pain: No Hx Coronary Artery / Peripheral Vascular Disease: No Hx CHF / Valvular Disease: No Hx Palpitations: No Cardiovascular History Comment: 3 episodes of A Fib - Pulmonary History Hx COPD: No Hx Asthma/Reactive Airway Disease: No Hx Recent Upper Respiratory Infection: No Hx Oxygen in Use at Home: No Hx Sleep Apnea: No Sleep Apnea Screening Result - Last Documented: Negative - Neurologic History Hx Cerebrovascular Accident: No Hx Seizures: No Hx Dementia: No - Endocrine History Hx Diabetes: No Obesity: no - Renal History Hx Renal Disorders: No - Liver History Hx Hepatic Disorders: No - Neurological & Psychiatric Hx Hx Neurological and Psychiatric Disorders: No - Cancer History Hx Cancer: No - Congenital Disorder History Hx Congenital Disorders: No - GI History GERD: no Hx Gastrointestinal Disorders: No - Other Health History Other Health History: NONE - Chronic Pain History Chronic Pain: Yes - Surgical History Prior Surgeries: appendectomy. cholecystectomy ANE Review of Systems Review of Systems: - Exercise capacity METS (RN): 5 METS ANE Patient History - Allergies Allergies/Adverse Reactions: codeine Allergy (Mild, Verified 01/11/19 11:35) n/v - Home Medications Home Medications: Rosuvastatin Calcium [Crestor 40mg (*)] 09/20/18 [Last Taken 02/01/19] Herbals/Supplements -Info Only 09/27/18 [Last Taken 2 Weeks Ago ~01/19/19] Omeprazole 09/27/18 [Last Taken 02/01/19] Apixaban [Eliquis] 10/02/18 [Last Taken 01/27/19] Aspirin EC [Aspirin EC 81 mg (*)] 10/02/18 [Last Taken 2 Weeks Ago ~01/19/19] Cholecalciferol (Vitamin D3) [Vitamin D3] 10/02/18 [Last Taken 2 Weeks Ago ~] Diltiazem HCl [Diltiazem ER] 01/11/19 [Last Taken 02/01/19] - NPO status NPO Status: no food or drink >8 hours NPO Since - Liquids (Date): 02/02/19 NPO Since - Liquids (Time): 04:45 NPO Since - Solids (Date): 02/01/19 NPO Since - Solids (Time): 18:00 - Anes Hx Anes Hx: no prior problems - Smoking Hx Smoking Status: Never smoked - Family Anes Hx Family Hx Anesthesia Complications: no ANE Labs/Vital Signs - Vital Signs Blood Pressure: 136/73 Heart Rate: 64 Respiratory Rate: 16 O2 Sat (%): 95 Height: 165.1 cm Weight: 64.41 kg ANE Physical Exam - Airway Neck exam: FROM Mallampati Score: Class 1 Mouth exam: normal dental/mouth exam - Pulmonary Pulmonary: no respiratory distress, no rales or rhonchi, clear to auscultation - Cardiovascular Cardiovascular: regular rate and rhythym, no murmur, rub, or gallop - ASA Status ASA Status: III ANE Anesthesia Plan Anesthesia Plan: spinal
[2019-02-02] MEDS ORDERED: MIDAZOLAM 2 MG/2 ML VIAL ONE (07:42)
[2019-02-02] MEDS ORDERED: PROPOFOL 200 MG/20 ML VIAL ONE (07:48)
[2019-02-02] MEDS ORDERED: BUPIVACAINE/DEXTROSE 7.5MG/ML 2 ML SPINAL AMP SP ONE (07:48)
[2019-02-02] MEDS ORDERED: DIPHENOXYLATE/ATROPINE LOMOTIL 1 TAB PO PRN (09:14)
[2019-02-02] MEDS ORDERED: CYCLOBENZAPRINE 10 MG TAB PO PRN (09:14)
[2019-02-02] MEDS ORDERED: ONDANSETRON DISINTEGRATING 4 MG TAB PO PRN (09:14)
[2019-02-02] MEDS ORDERED: POLYETHYLENE GLYCOL 3350 17 GM PKT PO PRN (09:14)
[2019-02-02] MEDS ORDERED: LACTULOSE 20 GM/30 ML UDCUP PO PRN (09:14)
[2019-02-02] MEDS ORDERED: oxyCODONE IR 5 MG TAB PO PRN (09:14)
[2019-02-02] MEDS ORDERED: diphenhydrAMINE 25 MG CAP PO PRN (09:14)
[2019-02-02] MEDS ORDERED: PROMETHAZINE HCL 25 MG SUPPR PR PRN (09:14)
[2019-02-02] MEDS ORDERED: BISACODYL 10 MG SUPP PR PRN (09:14)
[2019-02-02] MEDS ORDERED: TEMAZEPAM 15 MG CAP PO PRN (09:14)
[2019-02-02] MEDS ORDERED: METOCLOPRAMIDE 10 MG/2 ML VIAL IVP PRN (09:14)
[2019-02-02] MEDS ORDERED: MAGNESIUM HYDROXIDE 30 ML UDCUP PO PRN (09:14)
--- NOTE | 2019-02-02 09:14 | POSTOPPROG ---
Post Op Note Date of Operation: 02/02/19 Surgeon: Jordan Villarreal Supply Clerk: Magaly MCCOY Anesthesiologist: Dr. Silvio Martin Anesthesia: Spinal Pre-op Diagnosis: left hip oA Post-op Diagnosis: same Indication: left hip pain Procedure: left MARTHA Findings: severe OA of left hip Inf/Abcess present in the surg proc area at time of surgery?: No EBL: 50-100
[2019-02-02] MEDS ORDERED: LR 1,000 ML IV SCH (09:30)
--- NOTE | 2019-02-02 09:39 | POSTANESTH ---
Post Anesthetic Evaluation Cardiovascular Status: Tx Hyper/Hypo-tension (BP in 80s systolic on admission; will observe and expect to resolve as spinal block resolves.) Respiratory Status: Normal, Stable, Similar to Pre-op Cond. Level of Consciousness/Mental Status: Can Participate in Eval, Mildly Sleepy, Arousable Pain Control: Adequate, Prn Tx Ordered Nausea/Vomiting Control: Adequate, Prn Tx Ordered Complications Possibly Related to Anesthesia: None Noted
--- NOTE | 2019-02-02 13:13 | PDMN ---
Medical Necessity Medical necessity: [facility] IP only surgery; cpt [id number] L MARTHA
--- NOTE | 2019-02-02 15:11 | SOAPPROG ---
RICHELLE Progress Note Assessment/Plan: Assessment: s/p left MARTHA, anterior approach - procedure earlier today Plan: Begin d/c planning - she does not feel ready to leave today and would prefer to be discharged tomorrow Continue PT efforts - she needs to be released from PT prior to d/c Patient will resume Eliquis for VTE and also a. fib Continue pain medication - tolerating oral medication 02/02/19 15:08 02/02/19 15:13 Subjective: Patient states she is feeling good, pain is mild at this time. She was able to walk with PT, but does not feel that she is ready to leave at today. She would prefer to be discharged tomorrow. She denies shortness of breath, chest pain, fever, chills, nausea, vomiting. Objective: Vital Signs Temp Pulse Resp BP Pulse Ox 36.8 C 75 16 136/73 H 95 02/02/19 13:50 02/02/19 13:50 02/02/19 13:50 02/02/19 13:50 02/02/19 13:50 02/01/19 02/02/19 02/03/19 05:59 05:59 05:59 Intake Total 1320 Output Total 500 Balance 820 Patient resting comfortably in bed, no acute distress. LLE: surgical wound dressing is clean, dry and intact. Lower leg compartments are soft and nontender. She can actively DF and PF left foot and great toe against resistance. Grossly NVI distally. ICD10 Worksheet Patient Problems: Problems Problem Status Onset Unilateral primary osteoarthritis, left hip Acute Atrial fibrillation Acute
[2019-02-02] MEDS: ACETAMINOPHEN 325 MG TAB PO SCH ×2 (16:45→19:59)
[2019-02-02] MEDS: ceFAZolin 2 GM/DEXTROSE 100 ML IV SCH ×2 (16:48→23:51)
[2019-02-02] MEDS: FAMOTIDINE 20 MG TAB PO SCH (19:58)
[2019-02-02] MEDS: SENNOSIDES/DOCUSATE SODIUM TAB PO SCH (19:59)
[2019-02-02] MEDS ORDERED: DILTIAZEM XR 240 MG CAP PO SCH (21:00)
[2019-02-02] MEDS ORDERED: ASPIRIN EC 81 MG TAB PO SCH (21:00)
[2019-02-02] MEDS ORDERED: ROSUVASTATIN CALCIUM 40 MG TAB PO SCH (21:00)
[2019-02-03] MEDS: ACETAMINOPHEN 325 MG TAB PO SCH ×2 (02:45→08:30)
[2019-02-03 07:53] VITALS: BP 125/72
--- NOTE | 2019-02-03 08:07 | GOP ---
[f rep st] OPERATIVE REPORT DATE OF OPERATION: 02/02/2019 SURGEON: Sayra Villarreal MD STRAIGHTENING ROLL OPERATOR: Samina Diana P.A.-c ANESTHESIA: Spinal. PREOPERATIVE DIAGNOSIS: Left hip osteoarthritis. POSTOPERATIVE DIAGNOSIS: Left hip osteoarthritis. PROCEDURE PERFORMED: Total hip arthroplasty with x-ray. FINDINGS: ESTIMATED BLOOD LOSS: 200 cc. INDICATIONS: The patient has progressively worsening arthritis of the hip which has failed medical m anagement. The patient understands the treatment options including continued non-operative care and has selected surgical intervention. The patient has decided to undergo total hip arthroplasty via th e direct anterior approach, understanding the risks of the procedure including, but not limited to, n eurovascular injury, infection, persistent pain, component wear and loosening, deep venous thrombosis , pulmonary embolism, limb length inequality, hip instability (including dislocation), and intra-oper ative fractures. DESCRIPTION OF PROCEDURE: After proper identification of the patient including verification and garry ing the surgical site, the patient was brought to the operating room and placed in the supine positio n. All bony prominences were well padded. Anesthesia was induced without complication and intraveno us prophylactic antibiotics were administered prior to skin incision. The operative leg was placed in the Trumpf Arch table extension and the well leg in a Yellofin leg ho lder. The patient was prepped and draped in the usual sterile fashion. The C-arm was draped for int ra-operative fluoroscopy to check acetabular position, femoral component position including leg lengt h and femoral offset. Attention was then drawn to surgical exposure of the hip. An incision was made with a #10 Bard Toombs r blade starting 3 cm lateral and 3 cm distal to the anterior superior iliac spine measuring 8-10 cm and coursing distally toward the greater trochanter. The skin and subcutaneous tissues were divided sharply down to the fascia luz marina. The fascia luz marina was incised in line with the skin incision exposing the underlying tensor fascia luz marina muscle. The muscle was bluntly elevated from the fascia and the f irst extracapsular Cobra retractor was placed laterally at the junction of the superior femoral neck and greater trochanter. The lateral femoral circumflex vessels were identified, cauterized, and divi ded with the Aquamantys bipolar cautery. The deep investing fascia of the TFL was divided to allow p amrita mobilization of the muscle preventing damage during the retraction. The reflected head of the rectus femoris muscle was elevated off the anterior hip capsule and a medial Cobra retractor was plac ed just proximal to the lesser trochanter. The anterior capsulotomy was made sharply from the superolateral acetabulum to the saddle junction of the superior femoral neck and greater trochanter, then coursing inferomedial towards the lesser troc hanter. The retractors were then placed in the intracapsular position for femoral neck osteotomy. C orresponding to pre-operative templating, the osteotomy was made with the oscillating saw carefully p rotecting the greater trochanter and soft tissues. The femoral head was removed from the acetabulum with a corkscrew and confirmed to be severely arthritic with exposed bone, deformity and osteophytes. Similar findings were confirmed in the acetabulum. The Arch table extension was then placed in 40 degrees external rotation. Attention was then drawn to the acetabular preparation. After placement of the anterior and posterio r Cobra retractors outside the labrum and intracapsular, the circumferential labrum was removed sharp ly. The foveal contents were then removed and hemostasis obtained with cautery. The first reamer selected was sized using the removed femoral head. Reaming began with medialization and then commenced in 2 mm increments at 45 degrees of abduction and 15 degrees of anteversion using fluoroscopic navigation. Reaming ceased 1 mm less than the definitive acetabular component and jean carlos esponded to the pre-operative templating. The final acetabular component was inserted using fluorosc opy to achieve proper orientation yielding excellent purchase and stability in the acetabulum. The f inal acetabular liner was then placed and its seating confirmed. Attention was then turned to the femur. The Arch table extension was placed in extension and adducti on, delivering the osteotomized femoral neck into the wound. A 2-pronged femoral elevator was placed at the calcar and another at the tip of the greater trochanter. The posterolateral capsule was rele ased with cautery allowing mobilization of the femur lateral and anterior for preparation. The exter nal rotators were visualized and preserved. A curette and rongeur were used to open the starting poi nt for broaching. Serial broaching started with the #0 broach and ended with the broach that exhibit ed excellent fit in the proximal femur. A change in pitch during mallet strikes was accompanied by t he inability to advance the broach any further. The trial reduction was performed and fluoroscopic n avigation was utilized to check limb length. Adjustments were made to equalize limb length according ly. After the final trials were accepted they were removed and the wound was copiously lavaged. The femo ral component was seated to the same depth as the final broach and the femoral head was impacted onto the clean trunnion. The hip was then reduced for the final time and once more fluoroscopy was used to check that limb length equality was achieved. The wound was irrigated and closed in layers, the fascia luz marina with 2-0 Quill, the subcutaneous tissue with 2-0 Quill, and the skin with Dermabond. Sterile dressings were applied. Final sharps and spon ge counts were accurate. The patient was then transferred to a hospital bed and brought to the [facility] room in stable condition. IMPLANTS: Accolade II, size 3 at 127 acetabular component, a 48 mm Trident II; liner is a Trident X3 32 mm head with Biolox delta 32 mm +0. /[id number]/MODL
[2019-02-03] MEDS: SENNOSIDES/DOCUSATE SODIUM TAB PO SCH (08:29)
[2019-02-03] MEDS: FAMOTIDINE 20 MG TAB PO SCH (08:29)
[2019-02-03] MEDS ORDERED: APIXABAN 5 MG TAB PO SCH (09:00)
--- NOTE | 2019-02-03 09:48 | SOAPPROG ---
SOAP Progress Note Assessment/Plan: Assessment: s/p left MARTHA, anterior approach - POD 1 Plan: D/C today - she will have her and friend helping care for her post- operatively Continue PT efforts - she needs to be released from PT prior to d/c Patient will resume Eliquis and aspirin for VTE and also a. fib Continue pain medication - tolerating oral medication She would like to have a prescription for Zofran - will be electronically prescribed by Dr. Villarreal's office 02/03/19 09:45 Subjective: Patient states she is feeling better, pain is tolerable. She feels ready enough to go home today, but she would like to get a prescription for Zofran in case she experiences nausea at home. She will restart Eliquis and aspirin today for atrial fibrillation but also for VTE prophylaxis. She denies shortness of breath , chest pain, fever, chills. Objective: Vital Signs Temp Pulse Resp BP Pulse Ox 36.9 C 70 17 125/72 H 95 02/03/19 07:52 02/03/19 07:52 02/03/19 07:52 02/03/19 07:52 02/03/19 07:52 Laboratory Results 02/03/19 05:04 02/02/19 02/03/19 02/04/19 05:59 05:59 05:59 Intake Total 2443 Output Total 1100 Balance 1343 Patient resting comfortably in bed, no acute distress. LLE: Wound dressings are clean, dry and intact. Lower leg compartments are soft and nontender. Patient can actively DF and PF left foot and great toe against resistance. Grossly NVI distally. ICD10 Worksheet Patient Problems: Problems Problem Status Onset Unilateral primary osteoarthritis, left hip Acute Atrial fibrillation Acute
--- NOTE | 2019-02-03 09:57 | PDDCSUM ---
Discharge Summary Discharge Summary: ADMISSION DIAGNOSIS: Left hip severe degenerative arthritis DISCHARGE DIAGNOSIS: Left hip severe degenerative arthritis OPERATION PERFORMED: February 02, 2019 Left total hip arthroplasty, anterior approach POSTOPERATIVE COMPLICATIONS: None CONDITION ON DISCHARGE: Improved DESCRIPTION OF HOSPITAL COURSE: The patient was admitted to the hospital on the morning of surgery and underwent a left total hip arthroplasty, anterior approach. Postoperatively, patient was treated with multimodal DVT prophylaxis, including her normal Eliquis and aspirin (history of atrial fibrillation), MARLY hoses and SCDs. Patient was seen by PT and made good progress with ambulation and stairs. On the first post-operative day the patients H&H was 13.2/38.6. Patient was able to void spontaneously. At the time of discharge, patient was afebrile, wound was clean and dry. Patient is walking with a walker. DISPOSITION: The patient is discharged home with the support of her and friend. Patient may start outpatient PT in approximately 3 weeks. Patient may progress to full weightbearing on the left lower extremity as tolerated. MARLY stockings for 2 weeks during the daytime. She will continue to take her normal Eliquis and aspirin for atrial fibrillation but also VTE prophylaxis. Patient received prescriptions for Celebrex, oxycodone, Flexeril for pain control and muscle spasms. Zofran was electronically prescribed by Dr. Villarreal's office. The patient will be seen by Dr. Mcallister office on 02/24/19. If there are any problems, patient is to call Dr. Mcallister office.
--- NOTE | 2019-02-03 10:26 | ASMTLACE ---
LACE Length of stay for Answers: 2 days current admission Acuity / Level of Answers: Yes Care: Did the patient have an inpatient admission? Comorbidities - select Answers: Coronary Artery Disease all that apply Opioid dependence / Chronic pain Other Notes: AFib # of Emergency department Answers: 1-2 visits in the last 6 months Score: 13 Date Signed: 02/03/2019 10:26 AM Electronically Signed By:JARETH Quesada
== END 2019-02-03 10:50 | disposition home or self-care (01) | DRG 470 ==
LOC: F3N 05:55
PROVIDERS: ADMIT Orthopaedic Surgery; ATTEND Orthopaedic Surgery
PROC: 0SRB04Z Replacement of Left Hip Joint with Ceramic on Polyethylene Synthetic Substitute, Open Approach (ICD-10-PCS; principal; 2019-02-02 08:00)
DX: M16.12 Unilateral primary osteoarthritis, left hip (principal); I25.10 Atherosclerotic heart disease of native coronary artery without angina pectoris; E78.00 Pure hypercholesterolemia, unspecified; I48.91 Unspecified atrial fibrillation; Z79.01 Long term (current) use of anticoagulants
CPT/HCPCS: 97116-GP; 97161-GP; J0171; J0690; J1100; J1885; J2250; J2704; J2795